=== PATIENT | male | born 1995 | race Caucasian/White ===

== ENCOUNTER 2022-07-31 01:53 | Day surgery (SDC) | payer BC, SELFPAY ==
[2022-07-25 10:29] VITALS: BMI 33.5
[2022-07-31] MEDS: LACTATED RINGERS 1,000 ML 150 ML IV CONT (07:32)
[2022-07-31 07:35] VITALS: BP 128/80; PULSE 72; RESP 20; TEMP 36.1; O2SAT 98
--- NOTE | 2022-07-31 07:39 | WPDANESEPPF ---
Anes - Initial Pre Proc Eval Procedure: Operation Date: 07/31/22 08:30 Proposed Procedures p Esophagogastroduodenoscopy - Adriano Roland MD Date/Time: 07/31/22 07:39 Surgeon: Adriano Roland MD Pre Op Diagnosis: GERD Patient Data Age: 27 Gender: M Height: 1.93 m Weight: 122.2 kg Last Vital Signs Temp 36.1 C L 07/31/22 07:35 Pulse 72 07/31/22 07:35 Resp 20 07/31/22 07:35 BP 128/80 07/31/22 07:35 Pulse Ox 98 07/31/22 07:35 O2 Del Method Room Air 07/31/22 07:35 Allergies Allergy/AdvReac Type Severity Reaction Status Date / Time Penicillins Allergy Unknown Verified 07/31/22 07:33 citalopram AdvReac Unknown Verified 07/31/22 07:33 Home Medications Medication Instructions Recorded Confirmed Type omeprazole 40 mg capsule,delayed 40 mg PO BID 07/25/22 07/31/22 History release fluoxetine 40 mg capsule 40 mg PO DAILY 07/31/22 07/31/22 History Patient hx anesthesia problems: none Family hx anesthesia problems: none Results Review: All pre-operative results and documents have been reviewed as part of the pre-operative evaluation. 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 Informed Consent: The patient's anesthetic plan and its attendant risks and benefits were discussed with the patient/family/POA. Questions were solicited and answers provided to the satisfaction of the patient/family/POA.
--- NOTE | 2022-07-31 08:05 | PM.HPGS ---
History of Present Illness History of Present Illness Consent: Risks, benefits, and alternatives have been discussed and questions answered. Patient agrees to proceed with procedure. Chief complaint: GERD Narrative: Ian Tomas is a 27 year old male with gerd symptomatic despite omeprazole bid, had egd years ago and found to have hiatal hernia but could not afford surgery. Review of Systems Constitutional: Constitutional: Denies headache(s) and Denies weakness Eyes: Eyes: Denies blurry vision ENT: Reports Normal hearing present, Denies headache(s) and Denies neck pain Cardiovascular: Cardiovascular: Denies chest pain and Denies dyspnea Respiratory: Respiratory: Denies dyspnea Gastrointestinal: Gastrointestinal: Reports no additional gastrointestinal complaints Genitourinary: Genitourinary: Denies dysuria Musculoskeletal: Musculoskeletal: Denies neck pain Integumentary/Breasts: Skin/Breast: Denies dry skin Neurologic: Reports Normal hearing present, Denies headache(s) and Denies weakness Psychiatric: Psychiatric: Denies anxiety Endocrine: Endocrine: Denies change in body appearance Hematologic/Lymphatic: Hematologic/Lymphatic: Denies easy bleeding Allergic/Immunologic: Allergic/Immunologic: Denies urticaria PMFSH Past Medical History Medical History (Updated 06/21/22 @ 09:53 by LUL Cummings) Depression Gastroesophageal reflux disease GERD (gastroesophageal reflux disease) Surgical History Surgical History [place] teeth extracted Family History Family History Grandparent Diabetes mellitus Brain cancer Social History Social History Smoking status: Never smoker Alcohol intake: current Alcohol use details: socially Substance use: never Substance use type: does not use Living arrangements: with family Occupation/Education: occupation 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 Spiritual care concerns: No Meds Home Medications and Allergies Home Medications Medication Instructions Recorded Confirmed Type omeprazole 40 mg capsule,delayed 40 mg PO BID 07/25/22 07/31/22 History release fluoxetine 40 mg capsule 40 mg PO DAILY 07/31/22 07/31/22 History Allergies Allergy/AdvReac Type Severity Reaction Status Date / Time Penicillins Allergy Unknown Verified 07/31/22 07:33 citalopram AdvReac Unknown Verified 07/31/22 07:33 Vital Signs Vital Signs - 24 hr 07/31/22 07:35 Temperature 97 F L Pulse Rate 72 Respiratory Rate 20 Blood Pressure 128/80 Pulse Oximetry 98 Oxygen Delivery Room Air Exam Const: General: comfortable and no acute distress HENMT: Face/Nose/Sinus: Normal nares present Eyes: General: appearance normal, both eyes and all related structures Neck: Neck: no JVD Resp: Auscultation: clear to auscultation bilaterally Cardio: Rate: regular rate Rhythm: regular rhythm GI: Inspection: non-distended GI Palp: Yes Soft to palpation Skin: General skin exam: normal color Neuro: General: gait normal Speech: normal speech Extrem: General: normal to inspection Psych: Mental Status: mental status grossly normal Assessment and Plan Assessment and plan (1) Gastroesophageal reflux disease: Code(s): K21.9 - Gastro-esophageal reflux disease without esophagitis Status: Acute Assessment and Plan: egd with bx on ppi bid
[2022-07-31 08:15] VITALS: BP 111/74; PULSE 74; RESP 13; O2SAT 96
[2022-07-31 08:25] VITALS: BP 111/68; PULSE 71; RESP 20; O2SAT 99
== END 2022-07-31 08:44 | disposition home or self-care (01) ==
PROVIDERS: PCP Family Medicine; Visit Provider Internal Medicine Gastroenterology
PROC: 0DJ08ZZ Inspection of Upper Intestinal Tract, Via Natural or Artificial Opening Endoscopic (ICD-10-PCS; CPT 43235; principal; 2022-07-31 08:30)
DX: K21.9 Gastro-esophageal reflux disease without esophagitis (principal); K44.9 Diaphragmatic hernia without obstruction or gangrene; F32.A Depression, unspecified; E66.9 Obesity, unspecified; Z68.32 Body mass index [BMI] 32.0-32.9, adult
CPT/HCPCS: 43239; 88305; 88342; J2704; J7120

== ENCOUNTER → 2022-08-22 07:31 | Outpatient (CLI) | payer BC, SELFPAY ==
--- NOTE | ~2022-08-22 | US_ITS ---
Limited Abdominal Sonogram: Real-time sonographic imaging of the right upper quadrant was performed. Clinical History: Right upper quadrant pain Findings: The liver appears mildly echogenic, with no evidence of mass lesion or bile duct dilatatio n. Main portal vein demonstrates normal direction of flow. The gallbladder is well distended, and jennifer ears normal with no evidence of gallstone or wall thickening. The common bile duct measures 3 mm. Th e visualized pancreas, aorta, and IVC are unremarkable. Right kidney measures 10.1 cm in length, with out evidence for hydronephrosis. Impression: Diffuse fatty infiltration of the liver. Reviewed, dictated and finalized at location . Impression: Diffuse fatty infiltration of the liver.
== END ==
PROVIDERS: PCP Family Medicine; Visit Provider Surgery
DX: R10.11 Right upper quadrant pain (principal); K76.0 Fatty (change of) liver, not elsewhere classified
CPT/HCPCS: 76705

== ENCOUNTER 2022-12-11 07:43 | Outpatient (CLI) | payer BC, SELFPAY ==
--- NOTE | 2022-12-11 07:53 | ECG_ITS ---
Measurements Intervals [place] Rate: 71 P: -24 UT: 147 QRS: 51 QRSD: 86 T: 21 QT: 360 QTc: 393 Interpretive Statements SINUS RHYTHM WITH SINUS ARRHYTHMIA NO PREVIOUS ECG AVAILABLE FOR COMPARISON Electronically Signed On 12-11-2022 15:00:56 CDT by Sandy Saha M.D.
[2022-12-11 08:59] LABS: Hematocrit 45.2 % (42.0-52.0); Hemoglobin 14.3 g/dL (14.0-18.0)
== END 2022-12-11 07:44 | disposition home or self-care (01) ==
LOC: ANHSURGERY 07:46
PROVIDERS: Anesthesiology; PCP Family Medicine; Visit Provider Surgery
DX: K44.9 Diaphragmatic hernia without obstruction or gangrene (principal); Z01.818 Encounter for other preprocedural examination
CPT/HCPCS: 36415; 85014; 85018; 86850; 86900; 86901; 93005

== ENCOUNTER 2022-12-18 01:23 | Day surgery (SDC) | payer BC, SELFPAY ==
[2022-12-05 11:05] VITALS: BMI 32.8
--- NOTE | 2022-12-05 11:11 | PC.NURSE ---
Report to the Outpatient Waiting Room, entrance under the green pavilion located off [facility], at time 9:45 on date 12/18/22. Planned Procedure Time: 11:45. Time changes happen often and if your time is changed the preop area will call you the afternoon before. - You and your visitor will be asked to self-screen and do not enter if you have any COVID symptoms. - A mask is optional within the hospital at this time. Patients may have clear liquids (water, carbonated beverages, clear teas, apple juice) until 3 hours prior to surgery with a maximum of 20 ounces. - No food from midnight until time of surgery Take the following medications with a SIP of water the morning of surgery: SERTRALINE DO NOT STOP ANY OF YOUR OTHER PRESCRIPTION MEDICATIONS PRIOR TO SURGERY ?EXCEPT THE FOLLOWING Medications to discontinue per physician: N/A Date to take last dose: N/A Please no make-up, nail french, hairspray, perfume, deodorant, or body powder the day of surgery. No jewelry (including any body piercings) or valuables the day of surgery, leave them at home. Please take a shower or bath the night before, or the morning of, surgery with an antibacterial soap. Wear comfortable, loose fitting clothing. - Jewelry must be removed prior to entering the operating room. Rings and piercings that are not removed may be cut off. - The hospital will not accept responsibility for valuables. - Please leave all valuables, including medications, at home the day of surgery. If you are going home after surgery, a licensed public transit trolley driver must drive you home. - NO public transportation without another adult if you receive anesthesia. - We recommend that an adult stay with you for 24 hours following discharge. - We also recommend that you do not drive, make important decision, drink alcoholic beverages, or take any drugs that were not prescribed by your health care provider for at least 24 hours after your discharge time. Follow any additional instructions given to you from your surgeon. If you or anyone in your household have experienced Covid symptoms in the past week, please notify your surgeon or the nurse liaison at the phone number below for possible testing. Telephone instructions given to PT - PRINCESS GRIFFITHS and asked if any additional questions and then verbalized understanding. Patient advised to call surgeon office or pre surgery nurse liaison [phone] if any additional questions.
[2022-12-18] VITALS (12 sets, daily range): BP systolic 138–167; BP diastolic 72–93; PULSE 72–100; RESP 12–20; TEMP 36–37.1; O2SAT 95–100
[2022-12-18] MEDS: LACTATED RINGERS 1,000 ML 30 ML IV CONT ×2 (10:09→14:44)
--- NOTE | 2022-12-18 11:15 | PM.IMHP ---
H&P: HPI History of Present Illness Date/Time: 12/18/22 11:15 Chief Complaint: Hiatal hernia, acid reflux Narrative: This is a 27-year-old man who presents for hiatal hernia repair. He has a long history of acid reflux and has tried multiple medications. He has also tried dietary and lifestyle modifications without any significant relief of symptoms. An EGD confirmed hernia. Discussed proceeding with esophageal manometry and pH study, but patient could not stop the PPI for long enough to obtain the pH study. Manometry however was obtained and did show normal esophageal motility. Discussions were made with the patient after the testing and decision was made to proceed with robotic assisted laparoscopic hiatal hernia repair with fundoplication. Review of Systems Review of Systems: All systems reviewed & are unremarkable except as noted in HPI and below Constitutional: Constitutional: Denies chills, Denies fever(s), Denies headache(s) and Denies weight loss Eyes: Eyes: Denies change in vision ENT: Denies dizziness, Denies headache(s), Denies neck mass and Denies throat swelling Cardiovascular: Cardiovascular: Denies chest pain, Denies lightheadedness and Denies dyspnea Respiratory: Respiratory: Denies cough, Denies dyspnea and Denies wheezing Gastrointestinal: Gastrointestinal: Denies abdominal pain, Denies change in bowel habits, Denies nausea and Denies vomiting Genitourinary: Genitourinary: Denies hematuria and Denies dysuria Musculoskeletal: Musculoskeletal: Reports as per HPI Integumentary/Breasts: Skin/Breast: Reports as per HPI Neurologic: Denies dizziness and Denies headache(s) Allergic/Immunologic: Allergic/Immunologic: Denies throat swelling and Denies wheezing [facility] Past Medical History Medical History (Updated 08/17/22 @ 08:53 by Cyndi Newton) Depression Gastroesophageal reflux disease GERD (gastroesophageal reflux disease) Hiatal hernia Surgical History Surgical History (Updated 08/17/22 @ 08:53 by Cyndi Newton) History of pyloroplasty Pyloric stenosis as a baby [place] teeth extracted Family History Family History Grandparent Diabetes mellitus Brain cancer Other Cerebrovascular accident Heart disease Hypertension Social History Social History Smoking status: Never smoker Alcohol intake: current Drinks per week: 1 Alcohol use details: socially Substance use: current Substance use type: marijuana Other substance usage details: CELENA Living arrangements: with family Occupation/Education: occupation 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 Spiritual care concerns: No Meds Home Medications and Allergies Home Medications Medication Instructions Recorded Confirmed Type omeprazole 40 mg capsule,delayed 40 mg PO BID 07/25/22 12/18/22 History release sertraline 100 mg tablet 100 mg PO DAILY 12/05/22 12/18/22 History Allergies Allergy/AdvReac Type Severity Reaction Status Date / Time Penicillins Allergy Unknown Verified 12/18/22 10:24 citalopram AdvReac Other Verified 12/18/22 10:24 Vital Signs Vital Signs - 24 hr 12/18/22 09:50 Temperature 36.9 C Pulse Rate 72 Respiratory Rate 16 Blood Pressure 140/75 Pulse Oximetry 100 Oxygen Delivery Room Air Exam Const: General: no acute distress and alert Orientation/consciousness: patient oriented x3 HENMT: Head: normocephalic and atraumatic Ears: hearing grossly normal bilaterally Face/Nose/Sinus: Normal nares present Mouth: Yes Normal oral and palatal mucosa present Eyes: Periorbital: periorbital findings normal Sclera: sclerae normal EOM: EOMs intact bilaterally Neck: Neck: normal visual inspection, no lymphadenopathy and trachea midline Chest: Chest palpation & inspection: normal inspection of the chest Resp: Effort & I
--- NOTE | 2022-12-18 11:17 | WPDHPUPDATE1 ---
History and Physical Update Update Date/Time: 12/18/22 11:17 History and Physical has been reviewed, including an updated exam of the patient. There are NO changes in the patient's condition. Risks, benefits, and alternatives have been discussed and questions answered. Patient agrees to proceed with procedure.
--- NOTE | 2022-12-18 11:31 | WPDANESEPPF ---
Anes - Initial Pre Proc Eval Procedure: Operation Date: 12/18/22 12:00 Proposed Procedures p Laparoscopic Hiatal Hernia Nazia Fundoplication [facility] Assisted - Edi Espinosa DO Date/Time: 12/18/22 11:31 Surgeon: Edi Espinosa DO Pre Op Diagnosis: hiatal hernia Patient Data Age: 27 Gender: M Height: 1.93 m Weight: 121.9 kg Last Vital Signs Temp 98.4 F 12/18/22 09:50 Pulse 72 12/18/22 09:50 Resp 16 12/18/22 09:50 BP 140/75 12/18/22 09:50 Pulse Ox 100 12/18/22 09:50 O2 Del Method Room Air 12/18/22 09:50 Allergies Allergy/AdvReac Type Severity Reaction Status Date / Time Penicillins Allergy Unknown Verified 12/18/22 10:24 citalopram AdvReac Other Verified 12/18/22 10:24 Home Medications Medication Instructions Recorded Confirmed Type omeprazole 40 mg capsule,delayed 40 mg PO BID 07/25/22 12/18/22 History release sertraline 100 mg tablet 100 mg PO DAILY 12/05/22 12/18/22 History Patient hx anesthesia problems: none Family hx anesthesia problems: none Results Review: All pre-operative results and documents have been reviewed as part of the pre-operative evaluation. [facility] Past Medical History Medical History (Updated 08/17/22 @ 08:53 by Cyndi Newton) Depression Gastroesophageal reflux disease GERD (gastroesophageal reflux disease) Hiatal hernia Surgical History Surgical History (Updated 08/17/22 @ 08:53 by Cyndi Newton) History of pyloroplasty Pyloric stenosis as a baby [place] teeth extracted Family History Family History Grandparent Diabetes mellitus Brain cancer Other Cerebrovascular accident Heart disease Hypertension Social History Social History Smoking status: Never smoker Alcohol intake: current Drinks per week: 1 Alcohol use details: socially Substance use: current Substance use type: marijuana Other substance usage details: GUMMIES Living arrangements: with family 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 Informed Consent: The patient's anesthetic plan and its attendant risks and benefits were discussed with the patient/family/POA. Questions were solicited and answers provided to the satisfaction of the patient/family/POA.
[2022-12-18] MEDS: ceFAZolin 3 GM/D5W 100 ML 100 ML IVPB (11:47)
--- NOTE | 2022-12-18 14:49 | W.PM.PROC2 ---
Procedure Note - Detailed Date of Procedure 12/18/22 Pre-op Diagnosis hiatal hernia Post-op Diagnosis Same (Type 3 paraesophageal hernia) Procedure Performed Robotic assisted laparoscopic paraesophageal hernia repair with mesh, 270 degree fundoplication Surgeon Edi Espinosa, DO Anesthesia General and Local (0.5% bupivicaine with epi) Indications This is a 27-year-old man who presented with a symptomatic hiatal hernia and GERD. He underwent EGD on 07/31/[address] Roland. This showed evidence of a moderate-sized hiatal hernia and biopsies of the GE junction confirmed chronic inflammatory changes consistent with GERD. He underwent esophageal manometry, but refused the pH study due to having to be off of omeprazole for so long. Esophageal manometry showed normal esophageal motility. Discussions were made with the patient about treatment options and decision was made to proceed with robotic assisted laparoscopic paraesophageal hernia repair with fundoplication. Findings Laparoscopic paraesophageal hernia repair was performed. The patient is found have a type 3 paraesophageal hernia with the GE junction about 4 cm above the diaphragm and a portion of the fundus extending into the hiatal hernia. The herniated contents and hernia sac were reduced the esophagus was mobilized enough to bring several cm into the abdominal cavity. The hiatal hernia was repaired and decision was made to perform a 270 degree fundoplication. The hernia sac appeared fairly minimal therefore was left in place. No other specimens were obtained for pathology. Description of Procedure Procedure as well as risks, benefits, and alternatives were discussed with the patient. Written consent was obtained and placed in chart prior to procedure. Patient was brought back to surgical suite. He was placed supine on operating table. Time-out was done to confirm patient and procedure. He was then intubated by the anesthesia department. His abdomen was prepped and draped in sterile fashion using chlorhexidine prep. 0.5% bupivacaine with epinephrine was infiltrated locally around each area for port placement. An 8 mm incision was made in the left upper quadrant 2 cm inferior to the costal margin in the mid clavicular line. A 5 mm Optiview trocar was then advanced through the abdominal layers under direct visualization. Once inside the abdominal cavity, carbon dioxide insufflation was used to create a pneumoperitoneum. The camera was inserted in the abdomen was inspected. No immediate abnormalities were identified. Another 8 mm camera port was placed about 15 cm inferior to the xiphoid just to the left of midline under direct visualization. An 8 mm port was placed in the anterior axillary line on the left upper quadrant at about the same transverse plane as the camera port. An 8 mm port was placed in the right upper quadrant and another 8 mm AirSeal assist port was placed in right lower quadrant just to the right of the umbilicus. A 5 mm incision was made in the subxiphoid region and the [place] liver retractor was inserted through this incision into the abdominal cavity to lift up the left lobe of the liver. This was secured in place to the bed of the table. The patient was then placed in 30? reverse Trendelenburg. The robotic arms were secured to the ports and the robotic camera and instruments were inserted. A force bipolar grasper was placed in the right upper quadrant port. The vessel sealer was placed in the midclavicular left upper quadrant port and a Cadiere grasper was placed in the anterior axillary line left upper quadrant port. I then moved over to the robotic console took control of the camera and instruments. A careful thorough exam was performed throughout the abdomen. The stomach was then reduced from within the hiatal hernia. The gastrohepatic ligament was taken down medially using the vessel sealer to identify the right keyanna. Peritoneum along the medial si
[2022-12-18] MEDS: SERTRALINE HCL 50 MG TABLET 100 MG PO (17:41)
[2022-12-18] MEDS: LACTATED RINGERS 1,000 ML 100 ML IV CONT (17:41)
[2022-12-18] MEDS: oxyCODONE HCL (*CRX) 2.5 MG TAB IR PO (17:41)
[2022-12-18] MEDS: IBUPROFEN 600 MG TABLET PO (20:24)
[2022-12-19 01:40] VITALS: BP 125/68; PULSE 89; RESP 20; TEMP 36.6; O2SAT 97
[2022-12-19 04:43] VITALS: BP 129/68; PULSE 88; RESP 20; TEMP 36.6; O2SAT 97
[2022-12-19 06:00] LABS: Hematocrit 40.8 % (42.0-52.0); Hemoglobin 13.3 g/dL (14.0-18.0); Mean Corpuscular HGB Conc 32.6 g/dl (32-36); Mean Corpuscular Hemoglobin 27.7 pg (26-34); Mean Platelet Volume 10.3 fl (7.4-10.4); Platelet Count Result 247 k/mm3 (150-375); Red Cell Distribution Width 12.9 % (11.5-14.5); White Blood Count 9.2 K/mm3 (4.5-10.0)
[2022-12-19 06:18] LABS: Anion Gap 6 mmol/L (8-16); Blood Urea Nitrogen 10 mg/dL (9-20); Calcium 8.5 mg/dL (8.4-10.2); Carbon Dioxide 28 mmol/L (22-30); Chloride 102 mmol/L (98-107); Estimated CRCL calculation 152 ml/min; Estimated Glomerular Filt Rate > 60; Glucose 96 mg/dL (65-110); Potassium 3.9 mmol/L (3.4-5.0); Sodium 136 mmol/L (137-145)
[2022-12-19 08:00] VITALS: BP 153/88; PULSE 71; RESP 16; TEMP 36.5; O2SAT 100
[2022-12-19] MEDS: PANTOPRAZOLE 40 MG TABLET PO (08:09)
[2022-12-19] MEDS: ENOXAPARIN 40 MG/0.4 ML SYRINGE SUB-Q (08:09)
[2022-12-19 12:00] VITALS: BP 135/92; PULSE 76; RESP 18; TEMP 36.1; O2SAT 99
--- NOTE | 2022-12-19 12:53 | PM.DS ---
DS: Admitting Diagnosis Discharge Date 12/19/2022 Admitting Diagnosis Paraesophageal hernia, GERD DS: Discharge Diagnosis Discharge Diagnosis (1) Hiatal hernia: Code(s): K44.9 - Diaphragmatic hernia without obstruction or gangrene Status: Acute (2) Gastroesophageal reflux disease: Qualifiers: Esophagitis presence: without esophagitis Qualified Code(s): K21.9 - Gastro-esophageal reflux disease without esophagitis Code(s): K21.9 - Gastro-esophageal reflux disease without esophagitis Status: Acute DS: Summary Hospital Course Reason for hospitalization: Hiatal hernia Hospital Course: This is a 27-year-old man who presented with a symptomatic hiatal hernia. He was experiencing frequent GERD symptoms and had failed medical treatment. He underwent laparoscopic paraesophageal hernia repair with 270 degree fundoplication, da [facility] assisted on 12/18/2022. Surgery was uncomplicated and he was admitted to the surgical floor postoperatively. He was kept on a clear liquid diet at 1st and then this was advanced to a full liquid diet. He tolerated this without any dysphagia. He was remaining hemodynamically stable. Pain was well controlled. He was discharged on postop day 1. Status at Discharge Functional status at discharge: independent ambulation Overall status at discharge: patient is progressing back to baseline Time Spent with Patient Time attestation: Total time spent providing and/or coordinating discharge services: Time spent: Less than 30 minutes Exam Resp: Effort & Inspection: normal respiratory effort Auscultation: clear to auscultation bilaterally Cardio: Rate: regular rate Rhythm: regular rhythm Heart sounds: S1 normal heart sound present and S2 normal heart sound present GI: Inspection: incision (Intact with glue) GI Palp: Yes Soft to palpation, Yes Tenderness to palpation present (GI) (Incisional) and No Guarding due to palpation present (GI) Auscultation: normal bowel sounds DS: Data Data Completed and Pending Labs on day of discharge: Labs from last 24 hours 12/19/22 05:38 WBC 9.2 RBC 4.80 Hgb 13.3 L Hct 40.8 L MCV 85.0 MCH 27.7 MCHC 32.6 RDW 12.9 Plt Count 247 MPV 10.3 Sodium 136 L Potassium 3.9 Chloride 102 Carbon Dioxide 28 Anion Gap 6 L BUN 10 Creatinine 0.90 Estim Creat Clear Calc 152 Estimated GFR > 60 Glucose 96 Calcium 8.5 Discharge Plan Discharge Patient Disposition: Home, Self-Care Discharge Instructions: Postoperative instructions No lifting greater than 10-15 lb for [address] if no longer taking narcotic pain meds Continue full liquid or soft diet for the next 2 weeks. Avoid carbonated beverages or straws. Call office with difficulty swallowing, persistent nausea/vomiting, or problems with incisions. Patient Instructions: Soft Diet (DC), Full Liquid Diet (DC), Laparoscopic Hiatal Hernia Repair (DC) Follow-up/Referrals: Edi Espinosa DO [Physician] - Keep Reg. Scheduled Appt. Discharge Medications: New oxycodone-acetaminophen [Endocet] 5-325 mg tablet 0.5 - 1 tablet PO Q4H PRN (Reason: pain) Qty: 10 0RF Continued omeprazole 40 mg capsule,delayed release(DR/EC) 40 mg PO BID sertraline 100 mg tablet 100 mg PO DAILY
--- NOTE | 2022-12-19 13:05 | WPDANESPN ---
Anes - Prog Note Post-Op Date/Time: 12/19/22 13:05 Cardiovascular status: normal Respiratory status: normal Airway patency: baseline Mental status: baseline Post-Op hydration status: normal Vital Signs: Last Vital Signs Temp 36.1 C L 12/19/22 12:00 Pulse 76 12/19/22 12:00 Resp 18 12/19/22 12:00 BP 135/92 H 12/19/22 12:00 Pulse Ox 99 12/19/22 12:00 O2 Del Method Room Air 12/19/22 08:00 O2 Flow Rate 10 12/18/22 15:00 Pain Score (VAS): 2 I/O: Intake & Output 12/18/22 12/19/22 12/19/22 23:59 07:59 15:59 Intake Total 240 1500 240 Output Total 675 Balance -435 1500 240 Laboratory Tests 12/19/22 05:38 12/19/22 05:38 12/19/22 05:38 WBC 9.2 RBC 4.80 Hgb 13.3 L Hct 40.8 L MCV 85.0 MCH 27.7 MCHC 32.6 RDW 12.9 Plt Count 247 MPV 10.3 Sodium 136 L Potassium 3.9 Chloride 102 Carbon Dioxide 28 Anion Gap 6 L BUN 10 Creatinine 0.90 Estim Creat Clear Calc 152 Estimated GFR > 60 Glucose 96 Calcium 8.5 Post-procedural complaints: none Patient Feedback: Patient satisfied with anesthetic care.
--- NOTE | 2022-12-19 14:41 | PC.NURSE ---
Left without discharge instructions. Notified per telephone and discussed discharge information. Patient verbalized understanding of information discussed. Discharge packet will be mailed to patient as discussed on telephone.
== END 2022-12-19 13:50 | disposition home or self-care (01) ==
LOC: ANHSURGERY 09:37 → ANH3MEDSUR 15:59
PROVIDERS: PCP Family Medicine; Visit Provider Surgery
PROC: 0DV44ZZ Restriction of Esophagogastric Junction, Percutaneous Endoscopic Approach (ICD-10-PCS; CPT 43280; principal; 2022-12-18 12:00)
DX: K44.9 Diaphragmatic hernia without obstruction or gangrene (principal); K21.9 Gastro-esophageal reflux disease without esophagitis; F32.A Depression, unspecified; F12.90 Cannabis use, unspecified, uncomplicated; E66.9 Obesity, unspecified; Z68.32 Body mass index [BMI] 32.0-32.9, adult
CPT/HCPCS: 43282; S2900; 36415; 80048; 85027; A9270; J0690; J1100; J1170; J1650; J2250; J2405; J2704; J3010; J7030; J7120